=== PATIENT | male | born 1975 | race Caucasian/White ===

== ENCOUNTER 2020-12-07 13:08 | Emergency (ER) | payer OTHER ==
[~2020-12-07] VITALS: Ht 182.9 cm; Wt 104.3 kg
[~2020-12-07 13:08] MED LIST: ALPR.25; CEPH500 PO; CLIN300 PO; HYDACE5 PO; OXYACE5T PO; PARO30; SULTRIDS PO
[2020-12-07] MEDS ORDERED: AMLO5 PO (13:56)
[2020-12-07] MEDS ORDERED: Lisinopril2.5 MG PO (13:56)
[2020-12-07] MEDS ORDERED: ALPR.5 PO (13:56)
== END 2020-12-07 14:43 | disposition home or self-care (01) ==
LOC: ER 13:08
DX: R05 Cough (principal); R53.81 Other malaise; Z79.899 Other long term (current) drug therapy; Z88.0 Allergy status to penicillin; Z87.891 Personal history of nicotine dependence
CPT/HCPCS: 99282